=== PATIENT | female | born 1995 | race Caucasian/White ===

== ENCOUNTER → 2016-06-15 | Outpatient (REF) ==
[~2016-06-15] MED LIST: NO HOME MEDICATIONS
== END ==
LOC: ZLAB.WCH 10:30
DX: Z01.89 Encounter for other specified special examinations (principal)

== ENCOUNTER → 2017-10-04 | Outpatient (CLI) | payer OTHER | LOC: MC.RAD 08:58 | DX: N63.23 Unspecified lump in the left breast, lower outer quadrant (principal) ==

== ENCOUNTER → 2018-04-08 | Outpatient (CLI) | payer OTHER | LOC: MC.RAD 14:12 | DX: D24.2 Benign neoplasm of left breast (principal) ==

== ENCOUNTER → 2018-12-30 | Outpatient (CLI) | payer OTHER | LOC: MC.RAD 14:11 | DX: D24.2 Benign neoplasm of left breast (principal); N63.20 Unspecified lump in the left breast, unspecified quadrant ==

== ENCOUNTER → 2019-10-30 | Outpatient (CLI) | payer OTHER | LOC: MC.RAD 12:53 | DX: D24.2 Benign neoplasm of left breast (principal) ==

== ENCOUNTER → 2019-12-02 | Outpatient (CLI) | payer OTHER | LOC: MC.RAD 07:51 | DX: N63.23 Unspecified lump in the left breast, lower outer quadrant (principal); Z98.82 Breast implant status ==